=== PATIENT | female | born 1985 | race Caucasian/White ===

== ENCOUNTER 2024-04-21 00:46 | Inpatient (IN) | payer OTHER, SELFPAY ==
[2024-04-21 01:24] LABS: #Basophils 0.06 10x3/uL (0.0-0.2); %Basophils 0.7 % (0.0-1.0); %Eosinophils 2.9 % (0.0-10.0); %Lymphocytes 15.1 % (21.0-51.0); %Neutrophils 73.8 % (42.0-75.0); Mean Corpuscular HGB CONC 33.3 g/dL (32.0-36.0); Mean Corpuscular Hemoglobin 30.1 pg (27.0-31.0); Mean Corpuscular Volume 90.3 fL (78.0-98.0); Mean Platelet Volume 9.1 fL (7.4-10.4); Platelet Count 288 10x3/uL (130-400); RBC Distribution Width 14.2 % (11.5-14.5); Red Blood Cell (RBC) Count 4.32 mill/uL (4.20-5.40)
[2024-04-21 01:38] LABS: BHCG - Serum Negative (NEGATIVE); Pregs Control Background? CLEAR/WHITE (CLR/WHITE); Pregs Control Bar Appear? YES (CONTROL BAR)
[2024-04-21 01:41] LABS: ALT (SGPT) 96 U/L (8-55); AST (SGOT) 78 U/L (5-34); Albumin 3.6 g/dL (3.5-5.0); Alkaline Phosphatase 228 U/L (40-110); Anion Gap 11 mmol/L (10-20); BUN (Urea Nitrogen) 15 mg/dL (7.0-18.7); Bilirubin, Total 0.5 mg/dL (0.2-1.2); Calc. Creatinine Clearance 0 mL/min (70-130); Calcium 9.5 mg/dL (7.8-10.44); Carbon Dioxide 22 mmol/L (22-29); Chloride 107 mmol/L (98-107); Estimated GFR 85; Globulin 3.1 g/dL (2.4-3.5); Glucose 125 mg/dL (70-105); Lipase 11 U/L (8-78); Potassium 3.4 mmol/L (3.5-5.1); Protein, Total 6.7 g/dL (6.0-8.3); Sodium 137 mmol/L (136-145)
[2024-04-21 01:49] LABS: Troponin I Less than 0.010 ng/mL (< 0.028)
[2024-04-21] MEDS ORDERED: Dicyclomine 20 MG/2 ML VIAL ONE (04:29)
[2024-04-21] MEDS ORDERED: Ondansetron PF 4 MG/2 ML Vial IVP PRN ×2 (04:30→06:36)
[2024-04-21] MEDS ORDERED: Ondansetron ODT 4 MG TAB SL PRN (04:30)
[2024-04-21 06:19] VITALS: BMI 33.5
[2024-04-21] MEDS ORDERED: Acetaminophen 325 MG TAB PO PRN (06:36)
[2024-04-21] MEDS ORDERED: Morphine 2 MG/ML VIAL SLOW IVP PRN (06:36)
[2024-04-21] MEDS ORDERED: Promethazine HCl 25 MG/ML VIAL IM PRN (06:36)
[2024-04-21] MEDS: Sodium Chloride 0.9% 1,000 ML IV SCH ×2 (07:13→07:41)
[2024-04-21] MEDS: Meropenem 2 GM, Admixture Fee 1 EACH in Sodium Chloride 0.9% 100 ML IVPB SCH (07:13)
[2024-04-21] MEDS: VISCOUS SSW SCH (07:13)
[2024-04-21] MEDS: ALUM SSW SCH (07:13)
[2024-04-21] MEDS: MAG SSW SCH (07:13)
[2024-04-21] MEDS: LIDOCAINE 2% SSW SCH (07:13)
[2024-04-21] MEDS: DONNATAL SSW SCH (07:13)
[2024-04-21] MEDS: Famotidine 20 MG TAB PO SCH (09:09)
[2024-04-21] MEDS: TETANUS, DIPHTHERIA TOX,ADULT (TDVAX) 0.5 ML VIAL IM ONE (10:19)
[2024-04-21] MEDS ORDERED: Midazolam HCl 2 mg/2 ml Vial ONE ×2 (10:58)
[2024-04-21] MEDS ORDERED: PROPOFOL 0 ML ONE (10:58)
[2024-04-21] MEDS ORDERED: fentaNYL PF 100 MCG/2 ML SYRINGE ONE (10:58)
[2024-04-21] MEDS ORDERED: EPINEPHrine 1 MG/ML VIAL ONE (11:00)
[2024-04-21] MEDS ORDERED: Bupivacaine 0.25% HCL 30 ML VIAL ONE (11:00)
[2024-04-21] MEDS ORDERED: Ondansetron PF 4 MG/2 ML Vial ONE (11:35)
[2024-04-21] MEDS ORDERED: Dexamethasone 20 MG/5 ML VIAL ONE (11:35)
[2024-04-21] MEDS ORDERED: ePHEDrine Sulfate 50 MG/10 ML VIAL ONE (11:38)
[2024-04-21] MEDS ORDERED: Lidocaine 1% (PF) 30 ML VIAL ONE (11:41)
[2024-04-21] MEDS ORDERED: PROPOFOL 20 ML ONE (11:41)
[2024-04-21] MEDS ORDERED: Clindamycin/D5W 600 mg/50 ml Premix Bag ONE (11:53)
[2024-04-21] MEDS ORDERED: SUGAMMADEX SODIUM 200 MG/2 ML VIAL ONE (12:37)
[2024-04-21] MEDS ORDERED: fentaNYL 50 mcg/mL 1 mL Vial ONE ×2 (12:50)
[2024-04-21] MEDS ORDERED: Promethazine HCl 25 MG/ML VIAL ONE (13:07)
[2024-04-21] MEDS: traMADol HCl 50 MG TAB PO PRN (15:23)
[2024-04-21 17:10] VITALS: BP 118/76; TEMP 98.4
== END 2024-04-21 17:20 | disposition home or self-care (01) | DRG 419 ==
LOC: ERS 00:46 → T4-A 06:17 → OBSVTOIN 06:36
PROVIDERS: ADMIT Surgery; ATTEND Surgery
PROC: 0FT44ZZ Resection of Gallbladder, Percutaneous Endoscopic Approach (ICD-10-PCS; principal; 2024-04-21)
PROC: 3E033XZ Introduction of Vasopressor into Peripheral Vein, Percutaneous Approach (ICD-10-PCS; 2024-04-21)
DX: K80.00 Calculus of gallbladder with acute cholecystitis without obstruction (principal); Z88.0 Allergy status to penicillin; Z79.899 Other long term (current) drug therapy; R74.01 Elevation of levels of liver transaminase levels; K66.0 Peritoneal adhesions (postprocedural) (postinfection); J45.909 Unspecified asthma, uncomplicated
CPT/HCPCS: 71045; 76705; 80053; 83690; 84484; 84703; 85025; 85379; 88304; 93005; 96372; 96374; C1713; G0378; J0171; J0665; J1100; J2001; J2185; J2250; J2405; J2550; J2704; J3010; J3490